=== PATIENT | male | born 1960 | race Caucasian/White ===

== ENCOUNTER 2024-07-19 12:58 | Emergency (ER) | payer OTHER ==
[~2024-07-19] VITALS: Ht 172.7 cm; Wt 136.1 kg
[2024-07-19 13:09] VITALS: BP_SYST 146; PULSE 75; RESP 18; TEMP 98.3; O2SAT 98
[2024-07-19 13:58] LABS: BASOPHILS % (AUTO) 0.1 % (0.0-2.0); EOSINOPHILS % (AUTO) 0.4 % (0.0-4.0); HEMATOCRIT 39.8 % (36-54); HEMOGLOBIN 12.7 g/dL (14.0-18.0); LYMPHOCYTES # (AUTO) 3.7 K/uL (1.0-5.5); LYMPHOCYTES % (AUTO) 28.5 % (20.5-51.5); MEAN CORPUSCULAR HEMOGLOBIN 26 pg (27-31); MEAN CORPUSCULAR HGB CONC 32 % (32-36); MEAN CORPUSCULAR VOLUME 80 fL (79.0-98.0); MONOCYTES # (AUTO) 0.8 K/uL (0.0-1.0); MONOCYTES % (AUTO) 6.1 % (1.7-9.3); NEUTROPHILS # (AUTO) 8.5 K/uL (1.8-7.7); NEUTROPHILS % (AUTO) 64.9 % (40.0-70.0); PLATELET COUNT (AUTO) 233 K/uL (130-430); RED BLOOD CELL COUNT(AUTO) 4.97 MIL/uL (4.2-6.2); RED CELL DISTRIBUTION WIDTH 13.9 % (9.0-15.0); WHITE BLOOD COUNT (AUTO) 13.1 K/uL (4.8-10.8)
[2024-07-19 14:01] LABS: BILIRUBIN,URINE NEGATIVE (NEGATIVE); BLOOD, URINE 3+ (NEGATIVE); CLARITY/URINE SL CLOUDY (CLEAR); COLOR,URINE YELLOW (YELLOW); GLUCOSE,URINE NEGATIVE (NEGATIVE); KETONES,URINE NEGATIVE (NEGATIVE); LEUKOCYTE ESTERASE ,URINE NEGATIVE (NEGATIVE); NITRITE, URINE NEGATIVE (NEGATIVE); PROTEIN URINE TRACE (NEGATIVE); UROBILINOGEN,URINE 0.2 (0.2-1.0)
[2024-07-19 14:18] LABS: PROTHROMBIN TIME 10.9 SECS (9.5-12.5)
[2024-07-19 14:21] LABS: BACTERIA,URINE None Seen /HPF (None Seen); RBC,URINE 20-50 /HPF (0-3); WBC,URINE 0-3 /HPF (0-3)
[2024-07-19 15:02] LABS: ALBUMIN 3.7 g/dL (3.4-4.8); BILIRUBIN,DIRECT 0.1 mg/dL (0.0-0.3); CALCIUM 9.2 mg/dL (8.4-11.0); CREATININE 5.07 mg/dL (0.55-1.30); POTASSIUM 4.4 mmol/L (3.5-5.1); TOTAL BILIRUBIN 0.4 mg/dL (0.0-1.0); TOTAL PROTEIN, SERUM 7.6 g/dL (6.4-8.3)
[2024-07-19] MEDS ORDERED: IBUP-1971 PO (15:53)
[2024-07-19] MEDS ORDERED: HYDR-3927 PO (15:53)
[2024-07-19 16:23] VITALS: BP_SYST 144; PULSE 67; RESP 16; TEMP 98.3; O2SAT 97
[2024-07-20] MEDS ORDERED: LISINOPRIL (00:30)
[2024-07-20] MEDS ORDERED: METF-379 PO (00:30)
[2024-07-20] MEDS ORDERED: GLIP10TA21 PO (00:30)
[2024-07-20] MEDS ORDERED: TAMSULOSIN (00:30)
[2024-07-20] MEDS ORDERED: ASPI-859 PO (00:30)
[2024-07-20] MEDS ORDERED: ATOR-449 PO (00:30)
== END 2024-07-19 16:10 | disposition left against medical advice (07) ==
LOC: SED 12:58
DX: N17.9 Acute kidney failure, unspecified (principal); N23 Unspecified renal colic; R31.9 Hematuria, unspecified; I10 Essential (primary) hypertension; E78.5 Hyperlipidemia, unspecified; E11.9 Type 2 diabetes mellitus without complications; Z79.899 Other long term (current) drug therapy
CPT/HCPCS: 36415; 80048; 80076; 81000; 81001; 81015; 82150; 83605; 83690; 85025; 85610; 85730; 99284

== ENCOUNTER 2024-07-19 18:05 | Inpatient (IN) | payer OTHER ==
[~2024-07-19] VITALS: Ht 172.7 cm; Wt 136.1 kg
[~2024-07-19 18:05] MED LIST: HYDR-3927 PO; IBUP-1971 PO
[2024-07-19 18:10] VITALS: BP_SYST 139; PULSE 78; RESP 15; TEMP 97.9; O2SAT 98
[2024-07-19] MEDS ORDERED: HYDROcodone/ACETAMIN 5-325 MG TAB (NORCO/ VICODIN) PO PRN (22:00)
[2024-07-19] MEDS ORDERED: ACETAMINOPHEN 325 MG TABLET PO PRN (22:00)
[2024-07-19] MEDS ORDERED: MORPHINE 2 MG/ML INJ. SYRINGE IVP PRN (22:00)
[2024-07-19] MEDS ORDERED: ONDANSETRON HCL 4 MG/2 ML VIAL IVP PRN (22:00)
[2024-07-19] MEDS ORDERED: LORazepam 2 MG/ML VIAL IVP PRN (22:00)
[2024-07-19] MEDS: NACL 0.9% 1,000 ML IV ONE (22:21)
[2024-07-19] MEDS: cefTRIAXone 1 GM IVPB PREMIX 50 ML IV SCH (23:21)
[2024-07-20] VITALS (9 sets, daily range): BP systolic 137–144; PULSE 70–82; RESP 16–20; TEMP 96.8–98.4; O2SAT 96–98
[2024-07-20] MEDS ORDERED: TAMSULOSIN (00:30)
[2024-07-20] MEDS ORDERED: GLIP10TA21 PO (00:30)
[2024-07-20] MEDS ORDERED: LISINOPRIL (00:30)
[2024-07-20] MEDS ORDERED: ATOR-449 PO (00:30)
[2024-07-20] MEDS ORDERED: ASPI-859 PO (00:30)
[2024-07-20] MEDS ORDERED: METF-379 PO (00:30)
[2024-07-20] MEDS: NACL 0.9% 1,000 ML IV SCH (00:45)
[2024-07-20 07:14] LABS: BASOPHILS % (AUTO) 0.4 % (0.0-2.0); EOSINOPHILS # (AUTO) 0.1 K/uL (0.0-0.4); EOSINOPHILS % (AUTO) 0.4 % (0.0-4.0); HEMATOCRIT 35.7 % (36-54); HEMOGLOBIN 11.3 g/dL (14.0-18.0); LYMPHOCYTES # (AUTO) 3.1 K/uL (1.0-5.5); LYMPHOCYTES % (AUTO) 26.5 % (20.5-51.5); MEAN CORPUSCULAR HEMOGLOBIN 25 pg (27-31); MEAN CORPUSCULAR HGB CONC 32 % (32-36); MEAN CORPUSCULAR VOLUME 80 fL (79.0-98.0); MONOCYTES # (AUTO) 0.7 K/uL (0.0-1.0); MONOCYTES % (AUTO) 6.4 % (1.7-9.3); NEUTROPHILS # (AUTO) 7.7 K/uL (1.8-7.7); NEUTROPHILS % (AUTO) 66.3 % (40.0-70.0); PLATELET COUNT (AUTO) 202 K/uL (130-430); RED BLOOD CELL COUNT(AUTO) 4.49 MIL/uL (4.2-6.2); RED CELL DISTRIBUTION WIDTH 13.9 % (9.0-15.0); WHITE BLOOD COUNT (AUTO) 11.6 K/uL (4.8-10.8)
[2024-07-20 07:34] LABS: CALCIUM 8.3 mg/dL (8.4-11.0); CREATININE 4.04 mg/dL (0.55-1.30); PHOSPHORUS 5.3 mg/dL (2.7-4.5); POTASSIUM 4.5 mmol/L (3.5-5.1); TOTAL BILIRUBIN 0.3 mg/dL (0.0-1.0); TOTAL PROTEIN, SERUM 6.5 g/dL (6.4-8.3)
[2024-07-20] MEDS ORDERED: GLUCOSE (DEXTROSE) ORAL GEL -Adults PO PRN (10:00)
[2024-07-20] MEDS ORDERED: D5W 1,000 ML IV PRN (10:00)
[2024-07-20] MEDS ORDERED: INSULIN LISPRO SLIDING SCALE 100 UNITS/ML, 3 ML VIAL (humaLOG) SUBCUT PRN (10:00)
[2024-07-20] MEDS ORDERED: DEXTROSE 50% JECT 50 ML DISP.SYRIN IVP PRN (10:00)
[2024-07-20] MEDS: cefTRIAXone 1 GM IVPB PREMIX 50 ML IV ONE (23:34)
[2024-07-21] VITALS: BP_SYST 137; RESP 18; TEMP 98
[2024-07-21 07:34] LABS: BASOPHILS # (AUTO) 0.1 K/uL (0.0-0.2); BASOPHILS % (AUTO) 0.7 % (0.0-2.0); EOSINOPHILS # (AUTO) 0.1 K/uL (0.0-0.4); EOSINOPHILS % (AUTO) 0.7 % (0.0-4.0); HEMOGLOBIN 11.6 g/dL (14.0-18.0); LYMPHOCYTES # (AUTO) 3.3 K/uL (1.0-5.5); LYMPHOCYTES % (AUTO) 32.1 % (20.5-51.5); MEAN CORPUSCULAR HEMOGLOBIN 26 pg (27-31); MEAN CORPUSCULAR HGB CONC 32 % (32-36); MEAN CORPUSCULAR VOLUME 80 fL (79.0-98.0); MONOCYTES # (AUTO) 0.6 K/uL (0.0-1.0); MONOCYTES % (AUTO) 6.1 % (1.7-9.3); NEUTROPHILS # (AUTO) 6.3 K/uL (1.8-7.7); NEUTROPHILS % (AUTO) 60.4 % (40.0-70.0); PLATELET COUNT (AUTO) 178 K/uL (130-430); RED BLOOD CELL COUNT(AUTO) 4.53 MIL/uL (4.2-6.2); RED CELL DISTRIBUTION WIDTH 13.9 % (9.0-15.0); WHITE BLOOD COUNT (AUTO) 10.4 K/uL (4.8-10.8)
[2024-07-21 07:45] VITALS: O2SAT 98
[2024-07-21 07:55] LABS: CALCIUM 8.2 mg/dL (8.4-11.0); CREATININE 2.27 mg/dL (0.55-1.30); POTASSIUM 4.4 mmol/L (3.5-5.1); TOTAL BILIRUBIN 0.3 mg/dL (0.0-1.0); TOTAL PROTEIN, SERUM 6.5 g/dL (6.4-8.3)
[2024-07-21] MEDS ORDERED: metFORMIN HCL 500 MG TABLET PO SCH (09:00)
[2024-07-21] MEDS: ASPIRIN 81 MG TABLET(ECOTRIN) PO SCH (09:38)
[2024-07-21] MEDS: glipiZIDE XL 5 MG TAB ( GLUCOTROL XL) PO SCH (09:41)
[2024-07-21] MEDS: ATORVASTATIN 10 MG TABLET PO SCH (09:41)
[2024-07-21] MEDS: TAMSULOSIN HCL 0.4 MG CAP PO SCH (09:42)
[2024-07-21] MEDS: PANTOPRAZOLE SODIUM 40 MG TAB PO SCH (09:42)
[2024-07-21] MEDS ORDERED: INSULIN REGULAR, HUMAN 100 UNITS/ML, 3 ML VIAL (humuLIN R) SUBCUT PRN (09:45)
[2024-07-21] MEDS: D5W 500 ML IV ONE (10:00)
[2024-07-21] MEDS: 0.45% NS 500 ML IV ONE (11:00)
[2024-07-21 12:15] VITALS: BP_SYST 146; PULSE 70; RESP 16; TEMP 97.7; O2SAT 97
[2024-07-21 16:27] VITALS: BP_SYST 139; PULSE 70; RESP 18; TEMP 98.2; O2SAT 99
[2024-07-21 20:05] VITALS: BP_SYST 135; PULSE 72; RESP 18; TEMP 97.6; O2SAT 96
[2024-07-21] MEDS: cefTRIAXone 1 GM IVPB PREMIX 50 ML IV ONE (21:57)
[2024-07-22 06:31] LABS: BASOPHILS # (AUTO) 0.1 K/uL (0.0-0.2); BASOPHILS % (AUTO) 0.6 % (0.0-2.0); EOSINOPHILS # (AUTO) 0.1 K/uL (0.0-0.4); EOSINOPHILS % (AUTO) 0.5 % (0.0-4.0); HEMATOCRIT 36.8 % (36-54); HEMOGLOBIN 11.8 g/dL (14.0-18.0); LYMPHOCYTES # (AUTO) 3.5 K/uL (1.0-5.5); LYMPHOCYTES % (AUTO) 33.5 % (20.5-51.5); MEAN CORPUSCULAR HEMOGLOBIN 26 pg (27-31); MEAN CORPUSCULAR HGB CONC 32 % (32-36); MEAN CORPUSCULAR VOLUME 80 fL (79.0-98.0); MONOCYTES # (AUTO) 0.7 K/uL (0.0-1.0); MONOCYTES % (AUTO) 6.4 % (1.7-9.3); NEUTROPHILS # (AUTO) 6.1 K/uL (1.8-7.7); PLATELET COUNT (AUTO) 216 K/uL (130-430); RED BLOOD CELL COUNT(AUTO) 4.63 MIL/uL (4.2-6.2); WHITE BLOOD COUNT (AUTO) 10.4 K/uL (4.8-10.8)
[2024-07-22 06:56] LABS: ALBUMIN 3.4 g/dL (3.4-4.8); CALCIUM 8.7 mg/dL (8.4-11.0); CREATININE 1.91 mg/dL (0.55-1.30); PHOSPHORUS 4.6 mg/dL (2.7-4.5); POTASSIUM 4.5 mmol/L (3.5-5.1); TOTAL BILIRUBIN 0.3 mg/dL (0.0-1.0); TOTAL PROTEIN, SERUM 7.1 g/dL (6.4-8.3)
[2024-07-22 07:10] LABS: PROSTATE SPECIFIC AG TOTAL 3.7 ng/mL (0.0-4.0)
[2024-07-22 08:00] VITALS: BP_SYST 130; PULSE 65; RESP 17; TEMP 97.3; O2SAT 98
[2024-07-22 12:30] VITALS: BP_SYST 129; PULSE 71; RESP 17; TEMP 98; O2SAT 97
[2024-07-22 14:10] VITALS: BP_SYST 130; PULSE 65; RESP 17; TEMP 97.3; O2SAT 98
[2024-07-22] MEDS ORDERED: CEFTRIAXONE SOD 1 GM/ D5W 50 ML IV SCH (21:00)
== END 2024-07-22 14:10 | disposition home or self-care (01) | DRG 640 ==
LOC: SED 18:05 → SMU 21:56
PROVIDERS: ADMIT Student in an Organized Health Care Education/Training Program; ATTEND Student in an Organized Health Care Education/Training Program
DX: E86.0 Dehydration (principal); N17.0 Acute kidney failure with tubular necrosis; N13.8 Other obstructive and reflux uropathy; Z68.42 Body mass index [BMI] 45.0-49.9, adult; N13.6 Pyonephrosis; E11.65 Type 2 diabetes mellitus with hyperglycemia; E66.9 Obesity, unspecified; E11.22 Type 2 diabetes mellitus with diabetic chronic kidney disease; I12.9 Hypertensive chronic kidney disease with stage 1 through stage 4 chronic kidney disease, or unspecified chronic kidney disease; N18.9 Chronic kidney disease, unspecified; K76.0 Fatty (change of) liver, not elsewhere classified; K57.30 Diverticulosis of large intestine without perforation or abscess without bleeding; G47.33 Obstructive sleep apnea (adult) (pediatric); E78.5 Hyperlipidemia, unspecified; N40.1 Benign prostatic hyperplasia with lower urinary tract symptoms; R31.0 Gross hematuria; N21.0 Calculus in bladder; R33.8 Other retention of urine; Z79.84 Long term (current) use of oral hypoglycemic drugs
CPT/HCPCS: 36415; 80048; 80053; 80076; 81000; 81001; 81015; 82150; 82948; 83037; 83605; 83690; 83735; 84100; 84153; 85025; 85610; 85730; 99284; 99285; J0696; J7030; J7060